=== PATIENT | male | born 1965 | race Two or more races ===

== ENCOUNTER 2017-06-08 16:48 | Inpatient (IN) | payer SELFPAY ==
[~2017-06-08] VITALS: Ht 167.6 cm; Wt 67.8 kg
[2017-06-08] MEDS ORDERED: SODIUM CHLORIDE 0.9% 500 ML IV ONE (18:10)
[2017-06-08] MEDS ORDERED: SODIUM CHLORIDE 0.9% 1,000 ML IV ONE ×2 (18:10→18:38)
[2017-06-08] MEDS ORDERED: LEVOFLOXACIN 750MG PREMIX 150 ML IV ONE (18:15)
[2017-06-08] MEDS ORDERED: FOLIC ACID 1 MG, THIAMINE HCL 100 MG, MVI, ADULT NO.1 10 ML in DEXTROSE 5% WATER 1,000 ML IV ONE ×4 (18:15)
[2017-06-08 18:54] LABS: BASOPHILS % 0.9 % (0.0-2.0); HEMATOCRIT. 37.9 % (42.0-52.0); HEMOGLOBIN. 12.6 g/dL (14.0-18.0); LYMPHOCYTES % 28.9 % (20.0-50.0); MEAN CORPUSCULAR HEMOGLOBIN 30.1 pg (28.0-32.0); MEAN CORPUSCULAR VOLUME 90.2 fL (80.0-94.0); MEAN PLATELET VOLUME 7.5 fl (7.4-10.4); MONOCYTES % 7.1 % (2.0-8.0); NEUTROPHILS % 61.1 % (40.0-76.0); PLATELET 292 x1000/uL (130-400); RED CELL DISTRIBUTION WIDTH 13.1 % (11.6-14.6)
[2017-06-08 18:59] LABS: PROTHROMBIN TIME 10.8 sec (9.4-11.6)
[2017-06-08 19:24] LABS: CARBON DIOXIDE 25 mEq/L (21-32); CHLORIDE 109 mEq/L (98-107)
[2017-06-08 19:32] LABS: ETHANOL BLOOD 185 mg/dL; TROPONIN I < 0.02 ng/mL (0.00-0.04)
[2017-06-08] MEDS ORDERED: THIAMINE HCL 100 MG, MVI, ADULT NO.1 10 ML in DEXTROSE 5% WATER 1,000 ML IV NR ×3 (20:00)
[2017-06-08] MEDS ORDERED: KETOROLAC 15MG/ML VIAL IV PRN (20:15)
[2017-06-08] MEDS ORDERED: NITROGLYCERIN 0.4MG TABLET SL SL PRN (20:15)
[2017-06-08] MEDS ORDERED: IPRATROPIUM/ALBUTEROL 0.5-3(2.5)MG/3ML NEB INH PRN (20:15)
[2017-06-08] MEDS ORDERED: GUAIFENESIN 200MG/10ML SUGAR FREE UDC PO PRN (20:15)
[2017-06-08] MEDS ORDERED: LORAZEPAM 0.5MG TABLET PO PRN (20:15)
[2017-06-08] MEDS ORDERED: DOCUSATE SODIUM 100MG CAPSULE PO PRN (20:15)
[2017-06-08] MEDS ORDERED: DIPHENHYDRAMINE 50MG/ML VIAL IV PRN (20:15)
[2017-06-08] MEDS ORDERED: MAGNESIUM/ALUMINUM HYDROXIDE/SIMETHICONE 30ML UDC PO PRN (20:15)
[2017-06-08] MEDS ORDERED: ACETAMINOPHEN 325MG TABLET PO PRN (20:15)
[2017-06-08] MEDS ORDERED: ONDANSETRON HCL 4MG/2ML VIAL IV PRN (20:15)
[2017-06-08] MEDS ORDERED: CLONIDINE 0.1MG TABLET PO PRN (20:15)
[2017-06-08 20:38] LABS: TOTAL IRON BINDING CAPACITY 300 ug/dL (250-450)
[2017-06-08 20:55] LABS: CLARITY URINE CLEAR (CLEAR); COLOR URINE YELLOW (YELLOW); GLUCOSE URINE NEGATIVE (NEGATIVE); KETONES URINE NEGATIVE (NEGATIVE); LEUKOCYTE ESTERASE URINE NEGATIVE (NEGATIVE); NITRITE URINE NEGATIVE (NEGATIVE); OCCULT BLOOD URINE NEGATIVE (NEGATIVE); PROTEIN URINE NEGATIVE (NEGATIVE); SPECIFIC GRAVITY URINE 1.012 (1.005-1.030); UROBILINOGEN URINE 0.2 E.U./dL (0.2-1.0)
[2017-06-08] MEDS ORDERED: ZOLPIDEM TARTRATE 5MG TABLET PO PRN (21:00)
[2017-06-08 21:27] LABS: FOLIC ACID (FOLATE) SERUM 14.3 ng/mL (>5.38)
[2017-06-08] MEDS ORDERED: NA PHOS,M-B/NA PHOS,DI-BA ENEMA 118ML PR PRN (22:00)
[2017-06-09] VITALS: BP 145/82
[2017-06-09 00:10] VITALS: BP 145/82
[2017-06-09 01:03] LABS: CREATINE KINASE 215 IU/L (39-308); CREATINE KINASE MB FRACTION 1.2 ng/mL (0.5-3.6); TROPONIN I < 0.02 ng/mL (0.00-0.04)
[2017-06-09] MEDS ORDERED: CEFTRIAXONE 1 G PREMIX 50 ML IV SCH (02:00)
[2017-06-09 04:00] VITALS: BP 113/74
[2017-06-09] MEDS ORDERED: PNEUMOCOCCAL 23-VAL P-SAC VAC 0.5 ML IM ONE (06:00)
[2017-06-09] MEDS: SUCRALFATE 1 G/10 ML UDC PO SCH ×2 (06:27→12:24)
[2017-06-09] MEDS ORDERED: INFLUENZA VIRUS VACCINE 0.5ML SYR IM ONE (07:00)
[2017-06-09 08:00] VITALS: BP 123/81
[2017-06-09] MEDS ORDERED: ENOXAPARIN 40MG/0.4ML SYR SUBCUT SCH (09:00)
[2017-06-09] MEDS ORDERED: FAMOTIDINE 20MG/2ML VIAL IV SCH (09:00)
[2017-06-09 10:07] LABS: CREATINE KINASE 221 IU/L (39-308); CREATINE KINASE MB FRACTION 1.1 ng/mL (0.5-3.6); TROPONIN I < 0.02 ng/mL (0.00-0.04)
[2017-06-09 12:00] VITALS: BP 104/62
[2017-06-09 14:44] VITALS: BP 104/62
[2017-06-09] MEDS ORDERED: LEVOFLOXACIN 500MG PREMIX 100 ML IV SCH (19:00)
== END 2017-06-09 15:15 | disposition home or self-care (01) | DRG 775 ==
LOC: ER 16:57 → 5WST 19:52 → EDBEDREQSVC 19:56 → EDBEDREQTM 19:56 → EDBEDREQ 19:56 → ENRESERV 20:51 → CMPBEDREQ 21:47 → 5WST 06-09 00:25
PROVIDERS: ADMIT Internal Medicine; ATTEND Internal Medicine
DX: F10.129 Alcohol abuse with intoxication, unspecified (principal); E87.2 Acidosis; I95.9 Hypotension, unspecified; D64.9 Anemia, unspecified; J32.2 Chronic ethmoidal sinusitis; J32.0 Chronic maxillary sinusitis
CPT/HCPCS: 36415; 70450; 71010; 80053; 81003; 82550; 82553; 82607; 82746; 83540; 83550; 83605; 83880; 84484; 85025; 85610; 87040; 87086; 90686; 90732; 93005; 96365; 96366; 99291; G0482; J0696; J1650; J1956; J3411; J3490; J7030; J7050; J7070